=== PATIENT | female | born 1955 ===

== ENCOUNTER → 2024-03-15 | Outpatient (CLI) | payer OTHER ==
[2024-03-15 18:04] LABS: Alanine Aminotransfer (ALT/SGP 54 U/L (12-78); Albumin, Blood 4.1 g/dL (3.4-5.0); Albumin/Globulin Ratio 1.3 (0.8-1.8); Alk Phos 88 U/L (50-136); Anion Gap 9 mmol/L (3-11); Aspartate Aminotrans (AST/SGOT 39 U/L (12-37); Bilirubin, Total 0.5 mg/dL (0.1-1.0); Blood Urea Nitrogen 9 mg/dL (8-24); CHOL/HDL RATIO 3.9; CO2, Blood 27 mmol/L (21-32); Chloride, Blood 108 mmol/L (98-108); Cholesterol 238 mg/dL (50-200); Globulin, Blood 3.2 g/dL (2.2-4.0); Glucose, Blood 150 mg/dL (70-99); HDL Cholesterol 61 mg/dL (>39); LDL/HDL RATIO 2.1; Low Density Lipoprotein Chol 131 mg/dL (0-110); Potassium, Blood 3.9 mmol/L (3.5-5.5); Sodium, Blood 140 mmol/L (136-145); Total Protein, Blood 7.3 g/dL (6.4-8.2); Triglycerides 232 mg/dL (30-160); Very Low Density Lipoprot Chol 46 mg/dL (6-32)
[2024-03-15 18:08] LABS: Bun/Creatinine Ratio 15.4 (12.0-20.0); Creatinine, Blood 0.58 mg/dL (0.40-1.00); Glomerular Filtration Rate 98 (60-)
== END ==
LOC: LAB 12:58 → LAB SHORT 12:58
PROVIDERS: Nurse Practitioner Family
DX: I10 Essential (primary) hypertension (principal); R73.01 Impaired fasting glucose; E55.9 Vitamin D deficiency, unspecified; E78.2 Mixed hyperlipidemia
CPT/HCPCS: 80053; 80061; 82306; 84443

== ENCOUNTER 2024-07-31 14:34 | Emergency (ER) | payer OTHER ==
[~2024-07-31] VITALS: Ht 162.6 cm; Wt 68.0 kg
[2024-07-31 15:25] LABS: BASOPHILS ABSOLUTE AUTO 0.03 K/mm3 (0.00-0.23); BASOPHILS PERCENT AUTO 0 % (0-2); EOSINOPHILS ABSOLUTE AUTO 0.02 K/mm3 (0.00-0.68); EOSINOPHILS PERCENT AUTO 0 % (0-6); Hematocrit 37.4 % (33.0-51.0); IMMATURE GRAN ABSOLUTE AUTO 0.02 K/mm3 (0.00-0.10); IMMATURE GRAN PERCENT AUTO 0 % (0-1); LYMPHOCYTES ABSOLUTE AUTO 2.58 K/mm3 (0.84-5.20); LYMPHOCYTES PERCENT AUTO 33 % (21-46); MONOCYTES ABSOLUTE AUTO 0.73 K/mm3 (0.16-1.47); MONOCYTES PERCENT AUTO 9 % (4-13); Mean Corpuscular HGB 32.2 pg (26.0-34.0); Mean Corpuscular HGB Conc 34.8 g/dL (31.5-36.5); Mean Corpuscular Volume 93 fL (80-100); Mean Platelet Volume 8.9 fL (9.1-12.4); NEUTROPHILS ABSOLUTE AUTO 4.42 K/mm3 (1.96-9.15); NEUTROPHILS PERCENT AUTO 57 % (41-73); Platelet Count 197 K/mm3 (150-400); RDW Coefficient Variation 11.9 % (11.7-14.2); RDW Standard Deviation 40.7 fL (35.1-46.3); Red Blood Cell Count 4.04 M/mm3 (3.80-5.20)
[2024-07-31 15:47] LABS: Albumin, Blood 3.8 g/dL (3.4-5.0); Albumin/Globulin Ratio 1.2 (0.8-1.8); Bilirubin, Total 0.6 mg/dL (0.1-1.0); Bun/Creatinine Ratio 23.3 (12.0-20.0); Creatinine, Blood 0.47 mg/dL (0.40-1.00); Globulin, Blood 3.1 g/dL (2.2-4.0); Magnesium, Blood 2.2 mg/dL (1.6-2.4); Phosphorus, Blood 3.3 mg/dL (2.5-4.9); Potassium, Blood 3.8 mmol/L (3.5-5.5); Total Protein, Blood 6.9 g/dL (6.4-8.2)
[2024-07-31 17:03] LABS: Source, Urine Clean Catch
[2024-07-31 17:07] LABS: Appearance, Urine Clear (Clear); Bilirubin, Urine Neg (Neg); Blood, Urine Neg (Neg); Glucose Qualitative, Urine Neg (Neg); Ketones, Urine 1+ (Neg); Leukocyte Esterase, Urine 1+ (Neg); Nitrite, Urine Neg (Neg); Protein, Urine Neg (Neg); Urobilinogen, Urine NORM (Normal)
[2024-07-31 17:22] LABS: U Amphetamine Screen Not Detected; U Barbituate Screen Not Detected; U Benzodiazapine Screen Not Detected; U Buprenorphine Screen Not Detected; U Cannabinoids Screen Not Detected; U Cocaine Screen Not Detected; U Methadone Screen Not Detected; U Methamphetamine Screen Not Detected; U Opiates Screen Not Detected; U Oxycodone Screen Not Detected; U Phencyclidine Screen Not Detected
[2024-07-31 17:32] LABS: Color, Urine Pale Yellow (P-Yellow)
[2024-07-31 18:00] VITALS: BP 151/68
[2024-07-31 18:03] LABS: Bacteria Mod /hpf; Red Blood Cells, Urine 0-2 /hpf (0-2); Squamous Epithelial Cells Few /hpf (Few)
[2024-07-31] MEDS ORDERED: CEPH500 PO (18:10)
[2024-07-31] MEDS ORDERED: Cephalexin Monohydrate 500 MG Cap PO ONE (18:10)
== END 2024-07-31 18:40 | disposition home or self-care (01) ==
LOC: ER 14:34
PROVIDERS: Student in an Organized Health Care Education/Training Program
DX: N39.0 Urinary tract infection, site not specified (principal); R41.3 Other amnesia; I10 Essential (primary) hypertension
CPT/HCPCS: 70450; 80053; 81001; 83735; 84100; 85025; 93005; 93010; 96375; 99285-25; A9270; J3411

== ENCOUNTER 2025-01-08 08:58 | Emergency (ER) | payer OTHER ==
[~2025-01-08] VITALS: Ht 162.6 cm; Wt 56.7 kg
[~2025-01-08 08:58] MED LIST: CEPH500 PO
[2025-01-08] MEDS ORDERED: Lidocaine 2% Viscous Soln 15 ML UDC PO ONE (09:25)
[2025-01-08] MEDS ORDERED: LOSARTAN POTASS25 M2 PO (09:42)
[2025-01-08] MEDS ORDERED: ATORVASTATIN CA20 MG PO (09:42)
[2025-01-08] MEDS ORDERED: Lidocaine 4% 1 Patch TOP ONE (09:50)
[2025-01-08 10:15] VITALS: BP 172/74
[2025-01-08] MEDS ORDERED: ASPERFLEX1 EACH TOP (10:17)
== END 2025-01-08 10:33 | disposition home or self-care (01) ==
LOC: ER 08:58
DX: S39.012A Strain of muscle, fascia and tendon of lower back, initial encounter (principal); I10 Essential (primary) hypertension; E78.5 Hyperlipidemia, unspecified; X50.1XXA Overexertion from prolonged static or awkward postures, initial encounter
CPT/HCPCS: 72100; 99283-25; A9270

== ENCOUNTER 2025-01-10 11:18 | Emergency (ER) | payer OTHER ==
[~2025-01-10] VITALS: Ht 162.6 cm; Wt 56.7 kg
[~2025-01-10 11:18] MED LIST changes: +ASPERFLEX1 EACH TOP; +ATORVASTATIN CA20 MG PO; +LOSARTAN POTASS25 M2 PO
[2025-01-10 12:11] LABS: BASOPHILS ABSOLUTE AUTO 0.03 K/mm3 (0.00-0.23); BASOPHILS PERCENT AUTO 0 % (0-2); EOSINOPHILS ABSOLUTE AUTO 0.04 K/mm3 (0.00-0.68); EOSINOPHILS PERCENT AUTO 1 % (0-6); Hematocrit 39.2 % (33.0-51.0); Hemoglobin 13.2 g/dL (11.5-16.0); IMMATURE GRAN ABSOLUTE AUTO 0.01 K/mm3 (0.00-0.10); IMMATURE GRAN PERCENT AUTO 0 % (0-1); LYMPHOCYTES ABSOLUTE AUTO 2.90 K/mm3 (0.84-5.20); LYMPHOCYTES PERCENT AUTO 36 % (21-46); MONOCYTES ABSOLUTE AUTO 0.56 K/mm3 (0.16-1.47); MONOCYTES PERCENT AUTO 7 % (4-13); Mean Corpuscular HGB Conc 33.7 g/dL (31.5-36.5); Mean Corpuscular Volume 93 fL (80-100); NEUTROPHILS ABSOLUTE AUTO 4.48 K/mm3 (1.96-9.15); NEUTROPHILS PERCENT AUTO 56 % (41-73); NRBC ABSOLUTE 0.00 K/mm3 (0.00-0.02); NRBC Auto 0.0 /100 WBC (0.0-0.2); Platelet Count 212 K/mm3 (150-400); RDW Coefficient Variation 12.7 % (11.7-14.2); RDW Standard Deviation 43.2 fL (35.1-46.3)
[2025-01-10 12:35] LABS: Alanine Aminotransfer (ALT/SGP 60.0 U/L (12-78); Albumin, Blood 3.8 g/dL (3.4-5.0); Albumin/Globulin Ratio 1.0 (0.8-1.8); Anion Gap 9.0 mmol/L (3-11); Aspartate Aminotrans (AST/SGOT 40.0 U/L (12-37); Bilirubin, Total 0.5 mg/dL (0.1-1.0); Blood Urea Nitrogen 9.0 mg/dL (8-24); CO2, Blood 26.0 mmol/L (21-32); Calcium, Blood 9.1 mg/dL (8.5-10.1); Chloride, Blood 110.0 mmol/L (98-108); Creatinine, Blood 0.63 mg/dL (0.40-1.00); Globulin, Blood 3.8 g/dL (2.2-4.0); Glucose, Blood 122.0 mg/dL (70-99); Potassium, Blood 3.5 mmol/L (3.5-5.5); Sodium, Blood 141.0 mmol/L (136-145); Total Protein, Blood 7.6 g/dL (6.4-8.2)
[2025-01-10] MEDS ORDERED: Cephalexin Monohydrate 250 MG/5 ML UD BTL PO ONE (17:05)
[2025-01-10] MEDS ORDERED: CEPHALEXIN250 MG/5 M PO (17:08)
[2025-01-10 17:21] VITALS: BP 168/67
== END 2025-01-10 17:28 | disposition home or self-care (01) ==
LOC: ER 11:18
PROVIDERS: Student in an Organized Health Care Education/Training Program
DX: L03.116 Cellulitis of left lower limb (principal)
CPT/HCPCS: 73630; 80053; 85025; 90471; 90715; 99283-25; A9270